=== PATIENT | female | born 1970 | race Caucasian/White ===

== ENCOUNTER 2019-01-01 04:42 | Day surgery (SDC) | payer OTHER ==
[2018-12-29 15:26] VITALS: BMI 24.1
[2019-01-01] MEDS ORDERED: LIDOCAINE HCL/PF 2% SDV 5ML VIAL ONE (13:32)
[2019-01-01] MEDS ORDERED: PROPOFOL 20 ML ONE (13:32)
[2019-01-01] MEDS ORDERED: MIDAZOLAM HCL 2 MG/2 ML SINGLE DOSE VIAL ONE (13:32)
[2019-01-01] MEDS ORDERED: ACETAMINOPHEN 325 MG TABLET (FP) PO PRN (13:35)
[2019-01-01] MEDS ORDERED: IBUPROFEN 400 MG TABLET (FP) PO PRN (13:35)
--- NOTE | 2019-01-01 13:35 | HP ---
History & Physical Update - History History: No Change - Physical Physical: No Change - Assessment Assessment: No Change - Plan Plan: No Change (No change in HP)
--- NOTE | 2019-01-01 13:40 | OP ---
Operative Note - Note: Operative Date: 01/01/19 Pre-Operative Diagnosis: Endometrial polyp. Cervical polyp Operation: Hysteroscpic Myomectomy. Suction DC Findings: endometrial polyps seen Post-Operative Diagnosis: Same as Pre-op Surgeon: Mary Espinoza Anesthesia: General Estimated Blood Loss (mls): 10 Operative Report Dictated: Yes
[2019-01-01] MEDS ORDERED: oxyCODONE HCL 5 MG TABLET PO PRN (14:37)
[2019-01-01] MEDS ORDERED: ACETAMINOPHEN 1000 MG/100 ML VIAL (NON FORMULARY) IVPB PRN (14:38)
[2019-01-01] MEDS ORDERED: LACTATED RINGERS SOLUTION 1,000 ML IV SCH (14:45)
[2019-01-01 17:05] VITALS: BP 96/60; PULSE 64; TEMP 97.8
--- NOTE | 2019-01-03 17:56 | PATH ---
Surgical Pathology Report Patient Name: JOSE ALFREDO CHURCH [facility]. Rec. #: [id number] /Age/Gender: 1970 (Age: 48) / F Account: [id number] Location: [facility] SURGICAL Taken: 01/01/2019 Received: 01/02/2019 Reported: 01/03/2019 Physicians: Mary Espinoza M.D. Specimen(s) Received ENDOMETRIAL AND CERVICAL Clinical History Endometrial polyp Final Diagnosis ENDOMETRIAL AND CERVICAL POLYP, EXCISION: FRAGMENTS OF ENDOMETRIAL POLYP. SEPARATE FRAGMENTS OF PROLIFERATIVE ENDOMETRIUM. Electronically Signed Sparkle Rodriguez M.D. Gross Description Received in formalin labeled "endometrial polyp, cervical polyp," is a 2.5 x 2.0 x 0.3 cm aggregate of johnson brown soft tissue fragments. The formalin is filtered and the specimen is entirely submitted in one cassette. DL/01/02/2019 saudi/01/02/2019
--- NOTE | 2019-01-08 11:27 | OP ---
DATE OF OPERATION: 01/01/2019 PREOPERATIVE DIAGNOSIS: Endometrial polyp, cervical polyp. OPERATION: Hysteroscopic myomectomy, suction dilation and curettage. POSTOPERATIVE DIAGNOSIS: Endometrial polyp, cervical polyp. SURGEON: Mary Espinoza MD ANESTHESIA: General. ESTIMATED BLOOD LOSS: 10 mL. DESCRIPTION OF PROCEDURE: Patient was taken to the operating room, placed in dorsal lithotomy position, prepped and draped in the usual sterile fashion. Time-out was performed in accordance with hospital regulation. Speculum was placed in the vagina. Anterior lip of the cervix was grasped with a single-tooth tenaculum. Cervix was then dilated to accommodate the operative hysteroscope. Visualization revealed cervical polyp and an endometrial polyp. Cutting and cautery of the polyps was done. Suction dilation and curettage was then done. Hemostasis was achieved. All instruments were then removed. Estimated blood loss 10 mL. MARY ESPINOZA M.D. [id number]
== END 2019-01-01 17:05 | disposition home or self-care (01) ==
LOC: JASU-SURG 04:42
PROVIDERS: ATTEND Obstetrics & Gynecology
PROC: 0UDB7ZX Extraction of Endometrium, Via Natural or Artificial Opening, Diagnostic (ICD-10-PCS; 2019-01-01)
PROC: 0UBC8ZX Excision of Cervix, Via Natural or Artificial Opening Endoscopic, Diagnostic (ICD-10-PCS; principal; 2019-01-01 10:30)
PROC: 0UB98ZX Excision of Uterus, Via Natural or Artificial Opening Endoscopic, Diagnostic (ICD-10-PCS; 2019-01-01 10:30)
DX: N84.0 Polyp of corpus uteri (principal); N84.1 Polyp of cervix uteri; C50.919 Malignant neoplasm of unspecified site of unspecified female breast
CPT/HCPCS: 36415; 84703; 86850; 86900; 86901; 88305-TC; 94760